=== PATIENT | female | born 1965 | race Caucasian/White ===

== ENCOUNTER 2018-05-07 12:27 | Outpatient (RCR) | payer MEDICARE, SELFPAY ==
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
--- NOTE | 2018-08-01 12:34 | HP.PTDCNRP_ITS ---
HP - Discharge Summary (1) - Patient Information ANTONIA REYES was seen in my office for initial evaluation on 05/07/18. The following Plan of Care was established for this patient: Initial Frequency: 2-3x /Week Initial Duration: 4-6 Weeks - Anticipated Interventions Patient/Client Instruction: Educate patient on: Condition, Plan of Care, Risk Factors, Benefits of Fitness Program For the Purpose of:: To improve self management Therapeutic Exercise to Include: Strength training, Body mechanics, Postural training, Flexibilty training, Gait and locomotor training, In an aquatic set ting, Active ROM, Dynamic Lumbar Stabilization For the Purpose of:: To decrease pain, To increase ROM, To improve muscle performance and motor function, To improve ability to perform ADL's, To increase tolerance to activity/condition/position, To improve ability of physical actions for home/community/work/leisure, To improve gait and locomotor functions This patient was last seen in our office . Pertinent comments regarding their Physical therapy will appear below: This patient has not returned to Physical Therapy and is appropriate to return to MD for further follow-up as needed. At this point I will be discontinuing this patient from physical therapy. I would be happy to see this patient again in the future if found appropriate by the physician. Thank you! Pat Kahn
== END 2018-05-07 19:00 | disposition home or self-care (01) ==
LOC: PT 12:27
PROVIDERS: Family Provider Nurse Practitioner Primary Care; PCP Nurse Practitioner Primary Care
DX: M48.062 Spinal stenosis, lumbar region with neurogenic claudication (principal); M43.16 Spondylolisthesis, lumbar region
CPT/HCPCS: 97162

== ENCOUNTER → 2018-12-27 09:51 | Outpatient (CLI) | payer MEDICARE, SELFPAY ==
--- NOTE | 2018-12-27 09:55 | BI_ITS ---
MAMMOGRAPHY - BILATERAL SCREENING REASON FOR EXAM: Female, 53 years old. Routine annual screening examination. PERTINENT HISTORY: Non-contributory. Occasional bilateral breast tenderness. TECHNIQUE: Digital bilateral breast mellissa (3D mammographic acquisition) in the CC and MLO projections. 2-D mediolateral oblique (MLO) and craniocaudad (CC) views of both breasts were obtained. CAD: Full Field Digital Mammography with Computer Added Detection was performed. COMPARISON: Comparison is made with prior study dated September 28, 2015 and December 03, 2012. FINDINGS: Breast Composition: The breasts are heterogeneously dense, which may obscure small masses. There are no dominant masses or suspicious calcifications. No other significant abnormalities are identified. There has been no significant change since the prior study. BI/SCREENING MAMM (CAD), BILAT IMPRESSION: Stable bilateral screening mammogram. Yearly follow-up mammogram recommended. (A) ASSESSMENT CATEGORY: BIRADS Category 1: Negative. A letter regarding these results will be sent to the patient by the facility within 30 days. Approximately 10% of breast cancers are not detected by mammography. A normal mammogram should not delay biopsy of a clinically suspicious abnormality. [id number] Electronically Signed: Luis Avila, at 14:10 EDT , Service support ,
== END ==
PROVIDERS: Family Provider Nurse Practitioner Primary Care; PCP Nurse Practitioner Primary Care; Referring Provider Nurse Practitioner Primary Care; Visit Provider Nurse Practitioner Primary Care
DX: Z12.31 Encounter for screening mammogram for malignant neoplasm of breast (principal)
CPT/HCPCS: 77063; 77067

== ENCOUNTER → 2019-08-04 12:27 | Outpatient (CLI) | payer MEDICARE, SELFPAY ==
--- NOTE | 2019-08-04 12:36 | MRI_ITS ---
STUDY: MRI LUMBAR SPINE WITHOUT CONTRAST REASON FOR EXAM: Female, 53 years old. Bilateral leg numbness TECHNIQUE: Standardized fat and water weighted pulse sequences were obtained in the sagittal and axial planes. COMPARISON: 08 August 2013 FINDINGS: There is grade 2 anterolisthesis of L3 on L4, approximately 8 mm. There is advanced degeneration and possible partial fusion across the disc. There is dorsal pedicular screw fusion of L2, L3, L4 and L5. There is laminectomy decompression at L3, L4 and L5-S1. Marrow is normal. Paraspinous soft tissues are unremarkable. SI joints are not visualized. Conus medullaris terminates at L1. Cauda equina is normal. Spinal canal is fully patent all levels. There is moderate right L3-L4 foraminal stenosis. Remainder of the foramina are patent. Compared to 2013 hardware has been extended superiorly and thecal sac has been decompressed fully at L3-L4. MRI/Spine Lumbar (Routine) IMPRESSION: 1. Patent canal, no neural compression. 2. Expected appearance of L2-L5 pedicular screw fusion, L3-S1 laminotomy decompression. Electronically Signed: Laine Lynch, at 16:54 EDT Tel , Service support ,
--- NOTE | 2019-08-04 12:37 | MRI_ITS ---
STUDY: MRI CERVICAL SPINE WITHOUT CONTRAST REASON FOR EXAM: Female, 53 years old. Spondylosis neck and arm pain TECHNIQUE: Standardized fat and water weighted pulse sequences were obtained in the sagittal and axial planes. COMPARISON: 15 March 2006 FINDINGS: Craniocervical junction is intact and aligned. There is grade 1/2 anterolisthesis of C4 on C5, approximately 5 mm. There is grade 1 degenerative retrolisthesis of C6 on C7, less than 2 mm. There is reversal of cervical lordosis with kyphosis centered on C5-C6. Vertebral bodies are intact with normal marrow and expected age-related endplate and subchondral degeneration. Paraspinous soft tissues are normal. C2-C3 has patent canal and foramina. C3-C4 has patent canal and foramina. C4-C5 has mild canal stenosis without cord compression. Foramina are patent bilaterally. However, there is effacement of ventral CSF with mild flattening of the ventral cord. C5-C6 has mild thecal sac stenosis without cord compression. However, there is effacement of ventral CSF with flattening of the ventral cord. Dorsal CSF is preserved. There is moderate left foraminal stenosis with patent). C6-C7 has mild canal stenosis and cord compression due to circumferential spondylotic change. There is severe left and mild right foraminal stenosis. C7-T1 has patent canal and foramina. There is spinal cord deviation to accommodate for reversed lordosis/kyphosis. Cord size is normal. There is questionable mild ill-defined increased cord signal at C5-C6 versus artifact. Compared to 2005 there has been moderate progression of degenerative change with development of anterolisthesis and cord compression. MRI/Spine Cervical (Routine) IMPRESSION: 1. Degenerative malalignment, unknown stability. Dynamic stability can be evaluated with flexion and extension radiography. 2. Mild spondylotic cord compression from C4-C5 to C6-C7. 3. Neurosurgical referral is advised. Electronically Signed: Laine Lynch, at 16:29 EDT Tel , Service support ,
== END ==
LOC: MRI 12:29
PROVIDERS: Family Provider Nurse Practitioner Primary Care; PCP Nurse Practitioner Primary Care; Referring Provider Orthopaedic Surgery; Visit Provider Orthopaedic Surgery
DX: M47.892 Other spondylosis, cervical region (principal); M47.896 Other spondylosis, lumbar region
CPT/HCPCS: 72141; 72148

== ENCOUNTER 2021-09-23 21:13 | Emergency (ER) | payer MEDICARE, SELFPAY ==
[2021-09-23 21:14] VITALS: BP 171/73; PULSE 62; RESP 15; TEMP 36.3; O2SAT 100; BMI 21.2
[2021-09-23] MEDS: Fluorescein 1 MG STRIP 1 STRIP LEFT EYE (21:34)
[2021-09-23] MEDS: Tetracaine 0.5% Ophthalmic Bottle 1 DRP LEFT EYE (21:35)
--- NOTE | 2021-09-23 21:38 | EDS_ITS ---
HPI History of Present Illness Chief Complaint: Eye Problem Detail of Chief Complaint: Left eye pain Informant: patient Narrative Narrative: Patient presents to the emergency department complaint of left eye pain that started initially about a week ago. Patient states that she accidentally got some hairspray in her left eye and became irritated. She states the eyes been red since that time but the discomfort seemed to improve dramatically until tonight she started have more discomfort. She complains of pressure in her eye at times. She describes photophobia at times and tearing at times. She denies any other trauma to her eye. Prior similar symptoms: No PFSH PFSH Home Medications trazodone 100 mg PO QHS 09/06/16 [History Last Taken Unknown] Allergy/AdvReac Type Severity Reaction Status Date / Time No Known Allergies Allergy Verified 09/06/16 14:37 Social History Smoking Status: Current every day smoker tobacco type: cigarettes ROS ROS ED Constitutional Constitutional ED: Reports systems reviewed and no addt'l complaints, except as documented; Denies body ache(s), change in weight or chills Eyes Eyes: Reports change in vision and other Details: Left eye pain, redness, tearing ; Denies acute decrease in peripheral vision, double vision or loss of vision ENT ENT ED: Reports none; Denies ear pain, lip swelling, loss taste/smell, neck pain, otalgia or sore throat Cardiovascular Cardiovascular: Reports none; Denies abdominal pain, chest pain with activity, leg edema, lightheadedness, palpitations, rapid heart rate or syncope Respiratory/Chest Respiratory/Chest: Reports none; Denies change in mental status, dry cough, dyspnea, hemoptysis, shortness of breath at rest or shortness of breath with exertion Gastrointestinal Gastrointestinal: Reports none; Denies abdominal pain, change in stool character, diarrhea, hematemesis, hematochezia, melena, rectal bleeding or vomiting Genitourinary Genitourinary ED: Reports none; Denies abdominal discomfort, anuria, dysuria, genital pain or polyuria Musculoskeletal Musculoskeletal: Reports none; Denies arthralgias, back pain, difficulty walking, extremity pain, muscle weakness or myalgias Integumentary Reports none; Denies abscess or rash Neurologic Neurologic: Reports none; Denies abnormal gait, confusion, focal weakness, frequent falls, headache(s), loss of vision, numbness, paresthesias, radicular pain, vertigo or weakness Psychiatric Psychiatric: Reports systems reviewed and no addt'l complaints, except as documented and none; Denies behavioral changes, confusion, difficulty concentrating, hallucinations, suicidal ideation, tactile hallucinations or visual hallucinations Endocrine Endocrinology: Denies none, cold intolerance, excessive sweating, fatigue or heat intolerance Hematologic/Lymphatic Hematologic/Lymphatic: Reports none; Denies anemia, easy bleeding or easy bruising Allergic/Immunologic Allergic/Immunologic ED: Denies as per HPI, none, lip swelling, mouth swelling, throat swelling, tongue swelling or hives EXAM Physical Exam Narrative Exam Narrative: Visual acuity was performed on arrival. Const Vital Signs: 09/23/21 21:14 Temperature 97.3 F L Temperature Source Temporal Pulse Rate 62 Respiratory Rate 15 Blood Pressure 171/73 H Blood Pressure Mean 105 Pulse Ox 100 Oxygen Delivery Method Room Air Positive well nourished and well developed General Appearance ED: well developed and NAD HEENT Reports TM's clear and moist mucous membranes HEENT Narrative: Evaluation of the left eye reveals red conjunctiva diffusely. Pupils are equal react light bilaterally. Normal extraocular muscle movement is painless. Eyelids were everted and no foreign bodies noted. I stained the left eye with fluorescein and no corneal abrasions were noted. Tonometry was used to check left eye pressure and was 17 and a second time with performed was 15. Patient's cornea is clear with no haziness noted. normocephalic, atraumatic and tenderness Tympanic Membrane ED: Yes TM's clear Eyes PERRL and EOMs intact bilaterally General Eye ED: Negative for pale conjunctiva or scleral icterus Neck no lymphadenopathy, supple and no JVD General: Negative for tenderness Chest Wall inspection of chest normal and palpation of chest normal Chest: Negative for tenderness Resp normal respiratory effort and clear to auscultation bilaterally Effort and Inspection: Negative for respiratory distress or pain with movement Auscultation: Negative for rhonchi, wheezes or diminished lung sounds Cardio regular rate, regular rhythm, S1 normal heart sound, S2 normal heart sound and no murmurs Peripheral Pulses: pulses 2+ throughout GI normal to inspection, nondistended, normoactive bowel sounds, soft to palpation, non-tender, non-distended and no masses Back/Spine no CVA tenderness and no thoracic nor lumbar tenderness Extremity normal to inspection General Extremety ED: Negative for edema General Extremity: Negative for edema Neuro oriented x3, CN's II-XII intact bilaterally, no sensory deficits noted and gait normal Sensorium / Orientation: awake, alert, oriented to person, oriented to place and oriented to time Motor Exam: strength 5/5 throughout and strength abnormal Psych mental status grossly normal Skin no rashes or lesions noted and no wounds MDM MDM MDM Narrative Medical decision making narrative: Case will be discussed with pattern layout worker. I suspect she likely has a chemical conjunctivitis. Patient will be started on gentamicin ophthalmic drops. Discharge Plan Triage Chief Complaint: Eye Problem ED Provider: Alea Bailey Dx/Rx/DC Orders Clinical Impression: Acute chemical conjunctivitis Instructions: ED Conjunctivitis, Allergic, ED Conjunctivitis, Bacterial, ED Eye Exposure, Chemical Prescriptions: No Action trazodone 50 MG tablet 100 mg PO QHS RF: 0 Primary Care Provider: Nan Tripathi NP Referrals: Edis Campbell MD [STAFF PHYSICIAN] - 09/24/21 9:00 am Nan Tripathi NP, [facility] [Primary Care Provider] - Disposition Disposition: Home, Self Care
[2021-09-23] MEDS: Gentamicin Sulfate 1 OPTH.BTL 2 DRP LEFT EYE (21:51)
== END 2021-09-23 21:58 | disposition home or self-care (01) ==
PROVIDERS: Emergency Provider Emergency Medicine; PCP Nurse Practitioner Primary Care
DX: T65.891A Toxic effect of other specified substances, accidental (unintentional), initial encounter (principal); H10.212 Acute toxic conjunctivitis, left eye; F17.210 Nicotine dependence, cigarettes, uncomplicated
CPT/HCPCS: 99283

== ENCOUNTER → 2023-11-22 | Outpatient (CLI) | payer MEDICARE, SELFPAY ==
[2023-11-22 14:18] LABS: Basophil# 0.03 X10^3/uL; Basophil% 0.6 % (0-1); Eosinophil# 0.03 X10^3/uL; Eosinophils% 0.6 % (0-5); Hematocrit 38.6 % (37-47); Hemoglobin 12.5 g/dL (12.0-15.0); Lymphocyte % 25.8 % (19-41); Mean Corp Hgb Conc 32.4 g/dL (32-36); Mean Corpuscular Hgb 30.2 pg (27.0-32.0); Mean Corpuscular Volume 93.2 fL (81-99); Monocyte# 0.39 X10^3/uL; Monocyte% 8.4 % (0-10); NRBC Flagged by Analyzer 0 % (0-5); Neutrophil # 2.99 X10^3/uL (2.7-7.7); Neutrophil % 64.4 % (47-70); Platelet Count 319 K/mm3 (150-450); RBC Distribution Width CV 11.6 % (11.6-14.6); RBC Distribution Width SD 39.3 fl (35.1-43.9); Red Blood Count 4.14 M/mm3 (4.2-5.4); White Blood Count 4.7 K/mm3 (4.4-11.0)
[2023-11-22 15:02] LABS: Hepatitis C Antibody Non-Reactive (Nonreactive)
[2023-11-22 15:03] LABS: ALB/GLOB Ratio 1.3 RATIO (0.9-2.4); AST(SGOT) 11 U/L (15-37); Alanine Aminotransfer ALT/SGPT 20 U/L (13-56); Albumin, Serum 4.2 g/dL (3.2-5.0); Alkaline Phosphatase 60 U/L (45-117); Anion Gap 8 (5-15); BUN 32 mg/dL (7-18); BUN/Creat Ratio 41.2 RATIO (10-20); Calcium,Total 9.4 mg/dL (8.5-10.1); Chloride 108 mmol/L (98-107); Cholesterol 239 mg/dL (200); Creatinine, Serum 0.78 mg/dL (0.55-1.02); EST Glomerular Filtration Rate 81 mL/min (>60); Est Glom Filt Rate - Afr Amer 98 mL/min (>60); Globulin 3.3 g/dL (2.2-4.2); Glucose 94 mg/dL (74-106); High Density Lipoprotein 96 mg/dL; Protein, Total 7.5 g/dL (6.4-8.2); Sodium Level 141 mmol/L (136-145); Triglycerides 62 mg/dL; Very Low Density Lipoprotein 12 mg/dL (5-40)
== END | disposition home or self-care (01) ==
PROVIDERS: PCP Family Medicine Geriatric Medicine; Visit Provider Family Medicine Geriatric Medicine
DX: E78.5 Hyperlipidemia, unspecified (principal); E55.9 Vitamin D deficiency, unspecified; Z12.39 Encounter for other screening for malignant neoplasm of breast; Z13.89 Encounter for screening for other disorder
CPT/HCPCS: 36415; 80053; 80061; 84443; 85025; 86803